=== PATIENT | male | born 1955 | race Two or more races ===

== ENCOUNTER 2025-03-09 20:17 | Emergency (ER) | payer MEDICARE, BC ==
[~2025-03-09] VITALS: Ht 182.9 cm; Wt 70.3 kg
[2025-03-09 21:13] VITALS: BP 159/79; TEMP 98.1; O2SAT 99
[2025-03-09] MEDS ORDERED: CETI-90 PO (21:31)
[2025-03-09] MEDS ORDERED: DESO15CR8 TP (21:31)
[2025-03-09] MEDS ORDERED: TRIA15OI9 TP (21:31)
== END 2025-03-09 21:37 | disposition home or self-care (01) ==
LOC: ER 20:29
DX: R21 Rash and other nonspecific skin eruption (principal); I10 Essential (primary) hypertension